=== PATIENT | female | born 1950 | race Caucasian/White ===

== ENCOUNTER 2017-10-30 16:07 | Outpatient (CLI) | payer MEDICARE | END 2017-10-30 16:08 | disposition home or self-care (01) | LOC: BICMAMMO 16:07 | PROVIDERS: ATTEND Family Medicine | DX: Z12.31 Encounter for screening mammogram for malignant neoplasm of breast (principal) | CPT/HCPCS: 77063; 77067 ==

== ENCOUNTER 2019-01-14 08:12 | Outpatient (CLI) | payer MEDICARE ==
--- NOTE | 2019-01-14 09:49 | MRI ---
MRI LUMBAR SPINE WITHOUT CONTRAST: DATE: 01/14/2019. COMPARISON: None. HISTORY: Back pain and left lower extremity radiculopathy. TECHNIQUE: Multiplanar, multisequence MR imaging of the lumbar spine provided without contrast. FINDINGS: The sagittal STIR imaging demonstrates no focal area of osseous marrow edema. On the basis of 5 lumb ar-type vertebral bodies, the conus medullaris terminates at the L1 level. There is minimal retrolisthesis at L2-3 and minimal anterolisthesis at L3-4. T12-L1: Mild bilateral facet hypertrophy. Intervertebral disk height and signal intensity within no rmal limits. Mild anterior osteophyte formation. No central canal or neural foraminal stenosis. L1-2: Mild bilateral facet hypertrophy. No significant central canal or neural foraminal stenosis. L2-3: There is bilateral facet hypertrophy. There is disk space narrowing, disk desiccation, and di sk bulge. There is moderate right and mild left neural foraminal stenosis. There is moderate centra l canal stenosis. L3-4: Disk space narrowing, disk desiccation, and disk bulge present with prominent bilateral facet hypertrophy. There is severe central canal stenosis and moderate bilateral neural foraminal stenosis , right greater than left. L4-5: There is disk space narrowing, disk desiccation, disk bulge, and prominent bilateral facet hyp ertrophy. There is a superimposed central disk protrusion. There is severe central canal stenosis a nd severe bilateral neural foraminal stenosis. L5-S1: Disk space narrowing, disk desiccation, and disk bulge present with vacuum disk formation. M ild central canal stenosis. Bilateral facet hypertrophy noted with severe bilateral neural foraminal stenosis. The visualized retroperitoneal structures demonstrate no acute findings. IMPRESSION: Severe multilevel degenerative change within the lumbar spine as detailed above. POS: [facility]
== END 2019-01-14 08:13 | disposition home or self-care (01) ==
LOC: MRI 08:12
PROVIDERS: ATTEND Family Medicine
DX: M54.9 Dorsalgia, unspecified (principal); M54.30 Sciatica, unspecified side; M47.816 Spondylosis without myelopathy or radiculopathy, lumbar region; M47.817 Spondylosis without myelopathy or radiculopathy, lumbosacral region
CPT/HCPCS: 72148

== ENCOUNTER 2019-05-30 16:55 | Emergency (ER) | payer MEDICARE ==
[2019-05-30] MEDS ORDERED: Morphine 4 MG/ML VIAL ONE (17:22)
[2019-05-30] MEDS ORDERED: Ondansetron ODT 4 MG TAB ONE (17:22)
--- NOTE | 2019-05-30 17:35 | CT ---
EXAM: CT Lumbar Spine WO Con PROVIDED CLINICAL HISTORY: Back pain COMPARISON: MRI 01/14/2019 FINDINGS: There is no evidence for fracture or traumatic subluxation. Vertebral body heights are maintained. Ad vanced multilevel lumbar degenerative changes are redemonstrated with areas of central canal and foraminal narrowing that appears similar to the prior MRI. Vascular calcifications are noted. IMPRESSION: No evidence for an acute osseous abnormality.
--- NOTE | 2019-05-30 18:24 | RAD ---
EXAM: XR Hip Lt 2-3 View PROVIDED CLINICAL HISTORY: Pain FINDINGS: There is no evidence for fracture or other acute osseous abnormality. Alignment appears anatomic. Christelle nt spaces appear preserved. Left hip degenerative changes are seen. Vascular calcification is conspicuous. IMPRESSION: No evidence for an acute osseous abnormality. If there is persistent clinical concern, conservative m anagement and follow-up imaging advised.
--- NOTE | 2019-05-30 20:18 | CT ---
CT PELVIS WITHOUT CONTRAST: Indications: Fall with injury to left hip. FINDINGS: Review of the osseous structures shows no evidence of fracture to the pelvis or left hip. Degenerativ e changes of the lumbar spine and lumbosacral region. Mild degenerative changes at both hips. Review of soft tissues reveals a mass density seen in the soft tissues just inferior to the left hip, anterior to the gluteus muscle. This is heterogeneous and measures approximately 7 cm. Intramuscular hematoma would be suspected. Visualizes soft tissues in the pelvis are unremarkable. Calcified fibroid in the uterus. Bladder unre markable. Visualized bowel loops unremarkable. Tiny umbilical hernia. IMPRESSION: 1. No evidence of acute fracture. 2. Heterogeneous mass in the soft tissues inferior to the left hip, just anterior to the gluteus musc le, most likely representing a hematoma. Follow up is recommended. POS: KIERA
[2019-05-30] MEDS ORDERED: HYDROcodone/Acetaminophen 10/325 mg Tablet ONE (21:09)
== END 2019-05-30 21:14 | disposition home or self-care (01) ==
LOC: ERS 16:55
DX: S70.02XA Contusion of left hip, initial encounter (principal); E11.9 Type 2 diabetes mellitus without complications; I10 Essential (primary) hypertension; Z79.02 Long term (current) use of antithrombotics/antiplatelets; Z79.82 Long term (current) use of aspirin; Z79.84 Long term (current) use of oral hypoglycemic drugs; Z79.899 Other long term (current) drug therapy; W01.0XXA Fall on same level from slipping, tripping and stumbling without subsequent striking against object, initial encounter
CPT/HCPCS: 72131; 72192; 93005; 96372; J2270; Q0162

== ENCOUNTER 2020-03-13 12:02 | Day surgery (SDC) | payer MEDICARE ==
[2020-03-10 11:18] VITALS: BMI 31.1
[~2020-03-13 12:02] MED LIST: Lidocaine 1% PF 5 ML VIAL ONE; Metoclopramide HCl 10 MG/2 ML VIAL ONE; Metoprolol Tartrate 5 MG/5 ML VIAL ONE; Ondansetron PF 4 MG/2 ML Vial ONE; PROPOFOL 200 MG/20 ML VIAL ONE; Rocuronium Bromide 10 MG/ML (10ML VIAL) ONE
[2020-03-13] MEDS ORDERED: Ketorolac Tromethamine 30 MG/ML VIAL ONE (12:37)
[2020-03-13] MEDS ORDERED: Acetaminophen 500 MG TAB ONE (12:37)
[2020-03-13] MEDS ORDERED: Fentanyl 100 MCG/2 ML VIAL ONE ×2 (14:17→16:37)
[2020-03-13] MEDS ORDERED: Famotidine/PF 20 mg/2ml Vial ONE (14:17)
[2020-03-13] MEDS ORDERED: Iothalamate Meglumine 60% 50 ML VIAL FS ONE (14:19)
[2020-03-13] MEDS ORDERED: Bupivacaine 0.25% HCL 30 ML VIAL ONE ×2 (14:19→14:53)
[2020-03-13] MEDS ORDERED: EPINEPHrine 1 MG/ML AMP ONE ×2 (14:19→14:51)
[2020-03-13] MEDS ORDERED: SUGAMMADEX SODIUM 200 MG/2 ML VIAL ONE (14:33)
--- NOTE | 2020-03-14 05:47 | OP ---
DATE OF PROCEDURE: 03/13/2020 PREOPERATIVE DIAGNOSIS: Symptomatic cholelithiasis with large gallstone. POSTOPERATIVE DIAGNOSIS: Symptomatic cholelithiasis with large gallstone. PROCEDURE PERFORMED: Laparoscopic cholecystectomy. ANESTHESIA: General endotracheal. INDICATIONS FOR PROCEDURE: The patient is a 69-year-old white female. She had a recent episode of abdominal pain for which a gallbladder ultrasound was obtained revealing a large dominant gallstone within the gallbladder. This appeared to be close to 4 cm in diameter. She was taken to the operating room at this time for laparoscopic cholecystectomy. DESCRIPTION OF OPERATION: Informed consent was obtained. The patient was taken to the operating room, where general endotracheal anesthesia was obtained with patient in supine position. Abdomen was prepped with ChloraPrep and draped in sterile fashion. Local anesthetic was infiltrated using 0.25% percent Marcaine with epinephrine. The patient had prior laparoscopic incision infraumbilical. This was reopened in a vertical fashion. A Veress needle was passed this incision into the peritoneal cavity and pneumoperitoneum established using carbon dioxide up to a pressure of 15 mmHg. An 11 mm trocar port was passed through the same incision. Laparoscopic camera was passed through this port. Under direct vision, three 5 mm right upper quadrant ports were placed. Attention was turned to the gallbladder. This was grasped and retracted in a cephalad direction. While there were numerous adhesions to the gallbladder, there was no acute inflammatory change or evidence of infection. The gallbladder was grasped and retracted in cephalad direction. Careful dissection was carried out to expose the apex of the gallbladder, which was grasped and retracted laterally and inferiorly. There was abundant fatty tissue around the apex of the gallbladder. This was all dissected to identify the cystic duct and cystic artery. Neither of these was inflamed or enlarged at all. These were each dissected and divided between clips leaving two on the side to remain within the abdomen. The gallbladder was then dissected out of the gallbladder fossa using careful electrocautery. The gallbladder was then grasped and pulled up against the fascia at the infraumbilical incision. Due to the size of the gallstone, I had to substantially lengthen the skin incision and the fascial defect. The total length of skin incision was at least 4 cm. I was then able to remove the gallbladder intact. It was noted to have had abundant, almost black sludgy material around the very large gallstone. Right upper quadrant was inspected one final time and found to be hemostatic. All ports and instruments were removed under direct vision. Pneumoperitoneum was carefully evacuated. The fascial defect at the umbilicus was closed using a series of [id number] sutures using the 0 Vicryl. A total of four of these was placed. The wound was then copiously irrigated. The subcutaneous tissue was approximated with 3-0 Vicryl. The skin edges approximated with 4-0 Monocryl. Dermabond was placed externally. There were no complications. The patient tolerated the procedure well, was taken to recovery room in stable condition. Job ID: [id number]
== END 2020-03-13 18:20 | disposition home or self-care (01) ==
LOC: SDC 12:02
PROVIDERS: ATTEND Specialist
PROC: 0FT44ZZ Resection of Gallbladder, Percutaneous Endoscopic Approach (ICD-10-PCS; principal; 2020-03-13)
DX: K80.10 Calculus of gallbladder with chronic cholecystitis without obstruction (principal); I10 Essential (primary) hypertension; E11.9 Type 2 diabetes mellitus without complications; H26.9 Unspecified cataract; Z79.01 Long term (current) use of anticoagulants; Z79.02 Long term (current) use of antithrombotics/antiplatelets; Z79.82 Long term (current) use of aspirin; Z79.899 Other long term (current) drug therapy; Z88.5 Allergy status to narcotic agent; Z95.1 Presence of aortocoronary bypass graft
CPT/HCPCS: 36415; 86850; 86900; 86901; 88304; J0171; J0690; J1885; J2405; J2704; J2765; J3010; S0020; S0028

== ENCOUNTER 2020-09-22 09:45 | Outpatient (CLI) | payer MEDICARE | END 2020-09-22 09:46 | disposition home or self-care (01) | LOC: BICULT 09:45 | PROVIDERS: ATTEND Internal Medicine Nephrology | DX: N18.32 Chronic kidney disease, stage 3b (principal) | CPT/HCPCS: 76770; 93975 ==

== ENCOUNTER 2021-11-07 14:16 | Outpatient (CLI) | payer MEDICARE | END 2021-11-07 14:17 | disposition home or self-care (01) | LOC: BICRAD 14:16 | PROVIDERS: ATTEND Neurological Surgery | DX: M47.26 Other spondylosis with radiculopathy, lumbar region (principal) | CPT/HCPCS: 72110 ==

== ENCOUNTER 2021-12-04 12:20 | Outpatient (CLI) | payer MEDICARE ==
[2021-12-04 14:12] LABS: Anion Gap 15 mmol/L (10-20); BUN (Urea Nitrogen) 48 mg/dL (9.8-20.1); Calc. Creatinine Clearance 0 mL/min (70-130); Calcium 9.6 mg/dL (7.8-10.44); Carbon Dioxide 21 mmol/L (23-31); Chloride 107 mmol/L (98-107); Estimated GFR 20; Glucose 100 mg/dL (80-115); Sodium 139 mmol/L (136-145)
[2021-12-04 14:17] LABS: PTT 24.5 sec (22.0-33.0); Prothrombin Time 10.6 sec (9.5-12.1)
== END 2021-12-04 12:21 | disposition home or self-care (01) ==
LOC: LABBT 12:20
PROVIDERS: ATTEND Neurological Surgery
DX: Z01.818 Encounter for other preprocedural examination (principal); I48.0 Paroxysmal atrial fibrillation; Z20.822 Contact with and (suspected) exposure to COVID-19
CPT/HCPCS: 80048; 85610; 85730; 87811; 93005; 93010

== ENCOUNTER 2021-12-06 05:39 | Inpatient (IN) | payer MEDICARE ==
[2021-12-05 11:49] VITALS: BMI 36.2
[2021-12-06] MEDS ORDERED: fentaNYL Citrate/PF 100 MCG/2 ML SYRINGE ONE ×2 (06:21→06:28)
[2021-12-06] MEDS ORDERED: Bupivacaine HCl 0.5%/Epinephrine 1:200,000/PF 30 ml Vial ONE (06:26)
[2021-12-06] MEDS ORDERED: Neomycin-Polymyxin 1 ML AMP ONE (06:26)
[2021-12-06] MEDS ORDERED: Thrombin 5000 UNITS/5 ML VIAL ONE (06:26)
[2021-12-06] MEDS ORDERED: Midazolam HCl 2 mg/2 ml Vial ONE ×2 (06:27→07:08)
[2021-12-06] MEDS ORDERED: SUGAMMADEX SODIUM 200 MG/2 ML VIAL ONE ×2 (06:28→11:46)
[2021-12-06] MEDS ORDERED: Sodium Chloride 0.9% 100 ML ONE (07:00)
[2021-12-06] MEDS ORDERED: CEFAZOLIN 2 GM VIAL ONE (07:00)
[2021-12-06] MEDS ORDERED: Phenylephrine 10 MG/ML VIAL ONE (07:09)
[2021-12-06] MEDS ORDERED: PROPOFOL 200 MG/20 ML VIAL ONE (07:09)
[2021-12-06] MEDS ORDERED: Rocuronium Bromide 10 MG/ML (10ML VIAL) ONE (07:09)
[2021-12-06] MEDS ORDERED: ePHEDrine 50 MG/ML VIAL ONE (07:09)
[2021-12-06] MEDS ORDERED: Lidocaine 1% MPF 2 ML VIAL ONE (07:09)
[2021-12-06] MEDS ORDERED: Ondansetron PF 4 MG/2 ML Vial ONE (07:09)
[2021-12-06] MEDS ORDERED: Dexamethasone 20 MG/5 ML VIAL ONE (07:09)
[2021-12-06] MEDS ORDERED: Rocuronium Bromide 50 MG/5 ML VIAL ONE (10:18)
[2021-12-06] MEDS ORDERED: Promethazine HCl 25 MG/ML VIAL IVPB PRN (12:21)
[2021-12-06] MEDS ORDERED: Promethazine HCl 25 MG/ML VIAL IM PRN ×2 (12:21→12:24)
[2021-12-06] MEDS ORDERED: Ondansetron HCl/PF 4 MG/2 ML Vial IVP PRN (12:21)
[2021-12-06] MEDS ORDERED: Ondansetron PF 4 MG/2 ML Vial IVP PRN (12:24)
[2021-12-06] MEDS ORDERED: Promethazine HCl 12.5 MG SUPP PR PRN (12:24)
[2021-12-06] MEDS ORDERED: Promethazine 25 MG TAB PO PRN (12:24)
[2021-12-06] MEDS ORDERED: Morphine 4 MG/ML VIAL SLOW IVP PRN (12:24)
[2021-12-06] MEDS ORDERED: diphenhydrAMINE 25 MG CAP PO PRN (12:24)
[2021-12-06] MEDS ORDERED: Acetaminophen/Codeine 30-300mg Tablet PO PRN ×2 (12:24)
[2021-12-06] MEDS ORDERED: Acetaminophen 650 MG Suppository PR PRN (12:24)
[2021-12-06] MEDS ORDERED: HYDROcodone/Acetaminophen 10/325 mg Tablet PO PRN (12:24)
[2021-12-06] MEDS: Sodium Chloride 0.9% 1,000 ML IV SCH (14:16)
[2021-12-06] MEDS: CEFAZOLIN 2 GM in Sodium Chloride 0.9% 100 ML IVPB SCH ×2 (14:16→22:44)
[2021-12-06] MEDS: Acetaminophen 325 MG TAB PO PRN (17:40)
[2021-12-06] MEDS: Morphine 2 MG/ML VIAL SLOW IVP PRN ×2 (17:40→22:42)
[2021-12-06] MEDS ORDERED: HumaLOG 300 UNITS/3 ML VIAL SC PRN ×2 (18:43)
[2021-12-06] MEDS ORDERED: Dextrose 5% in Water 1,000 ML IV PRN (18:43)
[2021-12-06] MEDS ORDERED: Dextrose 50% Abboject 50 ML SYRINGE SLOW IVP PRN (18:43)
[2021-12-06] MEDS ORDERED: Furosemide 40 MG TAB PO SCH (21:00)
[2021-12-06] MEDS ORDERED: Allopurinol 100 MG TAB PO SCH (21:00)
[2021-12-06] MEDS: Atorvastatin Calcium 40 MG TAB PO SCH (21:49)
[2021-12-06] MEDS: Amlodipine 5 MG TAB PO SCH (21:49)
[2021-12-06] MEDS: Thyroid 60 MG TAB PO SCH (21:50)
[2021-12-06] MEDS: Amiodarone 200 MG TAB PO SCH (21:50)
[2021-12-06] MEDS: Metoprolol Tartrate 50 MG TAB PO SCH (21:50)
[2021-12-07] MEDS: Sodium Chloride 0.9% 1,000 ML IV SCH ×2 (02:53→16:26)
[2021-12-07 05:45] LABS: INR-International Normal Ratio 1.1; Prothrombin Time 14.3 sec (12.0-14.7)
[2021-12-07 05:53] LABS: Anion Gap 15 mmol/L (10-20); BUN (Urea Nitrogen) 36 mg/dL (9.8-20.1); Calc. Creatinine Clearance 35 mL/min (70-130); Calcium 7.8 mg/dL (7.8-10.44); Carbon Dioxide 16 mmol/L (23-31); Chloride 111 mmol/L (98-107); Estimated GFR 24; Glucose 165 mg/dL (80-115); Sodium 138 mmol/L (136-145)
[2021-12-07 06:13] LABS: #Lymphocytes 0.6 thou/uL (1.20-3.40); #Monocytes 0.7 thou/uL (0.11-0.59); #Neutrophils 9.6 thou/uL (1.40-6.50); %Basophils 0.1 % (0.0-1.0); %Eosinophils 0.1 % (0.0-10.0); %Lymphocytes 5.5 % (21.0-51.0); %Monocytes 6.6 % (0.0-10.0); %Neutrophils 87.6 % (42.0-75.0); Hemoglobin 9.3 g/dL (12.0-16.0); Mean Corpuscular HGB CONC 33.6 g/dL (32.0-36.0); Mean Corpuscular Hemoglobin 31.5 pg (27.0-31.0); Mean Corpuscular Volume 93.6 fL (78.0-98.0); Mean Platelet Volume 8.3 fL (7.4-10.4); Platelet Count 186 thou/uL (130-400); RBC Distribution Width 12.6 % (11.5-14.5); Red Blood Cell (RBC) Count 2.95 mill/uL (4.20-5.40); White Blood Cell (WBC) Count 10.9 thou/uL (4.8-10.8)
[2021-12-07] MEDS: CEFAZOLIN 2 GM in Sodium Chloride 0.9% 100 ML IVPB SCH (06:43)
[2021-12-07] MEDS ORDERED: Senokot 8.6 MG TAB PO SCH ×2 (08:30→21:00)
[2021-12-07] MEDS ORDERED: Zinc Sulfate 220 MG CAP PO SCH (09:00)
[2021-12-07] MEDS ORDERED: Cholecalciferol 1,000 UNITS (25 MCG) TAB PO SCH (09:00)
[2021-12-07] MEDS ORDERED: Polyethylene Glycol 3350 17 GM Packet PO SCH (09:00)
[2021-12-07] MEDS: Acetaminophen 325 MG TAB PO PRN (09:50)
[2021-12-07] MEDS: Metoprolol Tartrate 50 MG TAB PO SCH ×2 (09:51→20:47)
[2021-12-07] MEDS: Amiodarone 200 MG TAB PO SCH ×2 (09:51→20:48)
[2021-12-07] MEDS ORDERED: tiZANidine HCl 4 MG TAB PO PRN (17:48)
[2021-12-07] MEDS ORDERED: HYDROcodone/Acetaminophen 5/325 mg Tablet PO PRN (17:50)
[2021-12-07 19:23] VITALS: TEMP 98.4
[2021-12-07] MEDS: Amlodipine 5 MG TAB PO SCH (20:48)
[2021-12-07] MEDS: Thyroid 60 MG TAB PO SCH (20:50)
[2021-12-07] MEDS: Atorvastatin Calcium 40 MG TAB PO SCH (20:50)
[2021-12-07 20:51] VITALS: BP 110/63
== END 2021-12-07 21:15 | DRG 516 ==
LOC: SDC 05:39 → SJJU 12:29
PROVIDERS: ADMIT Neurological Surgery; ATTEND Neurological Surgery
PROC: 01NB0ZZ Release Lumbar Nerve, Open Approach (ICD-10-PCS; principal; 2021-12-06)
DX: M48.062 Spinal stenosis, lumbar region with neurogenic claudication (principal); I48.92 Unspecified atrial flutter; Z20.822 Contact with and (suspected) exposure to COVID-19; M10.9 Gout, unspecified; E03.9 Hypothyroidism, unspecified; I25.10 Atherosclerotic heart disease of native coronary artery without angina pectoris; E11.22 Type 2 diabetes mellitus with diabetic chronic kidney disease; I13.10 Hypertensive heart and chronic kidney disease without heart failure, with stage 1 through stage 4 chronic kidney disease, or unspecified chronic kidney disease; N18.9 Chronic kidney disease, unspecified; Z79.84 Long term (current) use of oral hypoglycemic drugs; Z79.01 Long term (current) use of anticoagulants; Z79.899 Other long term (current) drug therapy; Z88.5 Allergy status to narcotic agent; Z88.8 Allergy status to other drugs, medicaments and biological substances
CPT/HCPCS: 36415; 36416; 76000; 80048; 85025; 85610; 85730; 87811; 93005; J0690; J1100; J2250; J2270; J2370; J2405; J2704; J3370; J3490; J7050

== ENCOUNTER 2022-05-27 13:40 | Outpatient (CLI) | payer MEDICARE | END 2022-05-27 13:41 | disposition home or self-care (01) | LOC: BICMAMMO 13:40 | PROVIDERS: ATTEND Family Medicine | DX: Z12.31 Encounter for screening mammogram for malignant neoplasm of breast (principal); Z91.89 Other specified personal risk factors, not elsewhere classified | CPT/HCPCS: 77063; 77067 ==